=== PATIENT | male | born 1940 | race Caucasian/White ===

== ENCOUNTER 2019-11-18 07:03 | Day surgery (SDC) ==
--- NOTE | 2019-11-11 08:08 | EKG Report ---
Test Performed on : 11/11/2019 08:01:49 AM Test Reason : PAT Blood Pressure : / mmHG Vent. Rate : 074 BPM Atrial Rate : 074 BPM P-R Int : 200 ms QRS Dur : 092 ms QT Int : 368 ms P-R-T Axes : 060 034 074 degrees QTc Int : 408 ms Normal sinus rhythm. Normal ECG No previous ECGs available Confirmed by Lencho Gruber MD ([id number]) on 11/12/2019 7:30:11 AM
[2019-11-11 09:00] LABS: URINE SOURCE CLEAN CATCH
[2019-11-11 09:20] LABS: BILIRUBIN URINE NEGATIVE (NEGATIVE); BLOOD URINE NEGATIVE (NEGATIVE); COLOR YELLOW; GLUCOSE URINE NEGATIVE (NEGATIVE); KETONE URINE NEGATIVE (NEGATIVE); LEUKOCYTES URINE NEGATIVE (NEGATIVE); NITRITE URINE NEGATIVE (NEGATIVE); PROTEIN URINE NEGATIVE (NEGATIVE); SP GRAVITY URINE 1.014; TURBIDITY URINE CLEAR (CLEAR); UROBILINOGEN URINE NORMAL (NORMAL)
[2019-11-11 09:23] LABS: UR EPITHELIAL CELLS <10 /HPF (<10); URINE BACTERIA NEGATIVE /HPF; URINE RBC <10 /HPF (<10); URINE WBC <10 /HPF (<10)
[2019-11-11 09:27] LABS: BASO# 0.02 X1000 (0.0-0.2); BASO% 0.4 % (0.0-0.8); EOS# 0.11 X1000 (0.0-0.7); EOS% 2.4 % (0.0-10.0); HEMATOCRIT 39.3 % (42.0-52.0); HEMOGLOBIN 12.3 g/dL (14.0-18.0); LYMPH# 0.81 X1000 (1.2-3.4); LYMPH% 17.8 % (20.5-51.1); MCH 27.2 PG (27-31); MCHC 31.3 g/dL (33-37); MCV 86.8 FL (81-99); MONO# 0.45 X1000 (0.11-0.59); MONO% 9.9 % (1.7-9.3); MPV 9.4 FL (7.4-10.4); NEUT# 3.15 X1000 (1.4-6.5); NEUT% 69.5 % (42.2-75.2); PLT 171 X1000 (130-400); PROTIME 13.3 Seconds (11.0-16.0); RBC 4.53 XMIL (4.7-6.1); RDW 12.6 % (11.5-14.5); WBC 4.54 X1000 (4.8-10.8)
[2019-11-11 09:28] LABS: PTT 28.2 Seconds (22.3-41.8)
[2019-11-11 10:03] LABS: AGAP 13; ALBUMIN 3.9 g/dL (3.5-5.0); BUN 16 mg/dL (8-22); CALCIUM 9.5 mg/dL (8.8-10.2); CHLORIDE 100 mmol/L (98-107); COSMO 281; CREATININE 1.1 mg/dL (0.7-1.2); ESTIMATED GFR > 60; GLUCOSE 110 mg/dL (70-104); POTASSIUM 4.8 mmol/L (3.5-5.1); SODIUM 140 mmol/L (136-145); TCO2 27 mmol/L (25-35)
[2019-11-11 10:42] LABS: HEMOGLOBIN A1C 6.2 % (4.8-6.0)
[2019-11-18] MEDS ORDERED: COLACE ONE (07:42)
[2019-11-18] MEDS ORDERED: PEPCID ONE (07:42)
[2019-11-18] MEDS ORDERED: REGLAN ONE (07:42)
[2019-11-18] MEDS ORDERED: LR 1,000 ML ONE ×2 (07:43→09:56)
[2019-11-18] MEDS ORDERED: KEFZOL 1 GM/D5W 2 GM/100 ML IVPB ONE (07:43)
[2019-11-18] MEDS ORDERED: LYRICA ONE (07:43)
[2019-11-18] MEDS ORDERED: CELEBREX ONE (07:43)
[2019-11-18] MEDS ORDERED: DIPRIVAN 1% ONE ×2 (08:07→11:23)
[2019-11-18] MEDS ORDERED: VERSED ONE (08:07)
[2019-11-18] MEDS ORDERED: XYLOCAINE-MPF 2% ONE (08:08)
[2019-11-18] MEDS ORDERED: ROBINUL ONE ×2 (08:08→10:08)
[2019-11-18] MEDS ORDERED: MARCAINE 0.25% PF ONE (09:34)
[2019-11-18] MEDS ORDERED: SODIUM CHLORIDE 0.9% ONE (09:34)
[2019-11-18] MEDS ORDERED: TORADOL ONE (09:34)
[2019-11-18] MEDS ORDERED: DURAMORPH ONE (09:34)
[2019-11-18] MEDS ORDERED: VANCOMYCIN ONE (09:34)
[2019-11-18] MEDS ORDERED: CYKLOKAPRON 1,000 MG/NS 1,000 MG/100 ML IVPB ONE ×2 (09:34→09:36)
[2019-11-18] MEDS ORDERED: NEOSPORIN G.U. IRRIGANT ONE (09:36)
[2019-11-18] MEDS ORDERED: EXPAREL 1.3% ONE (09:36)
[2019-11-18] MEDS ORDERED: FENTANYL ONE (10:01)
[2019-11-18] MEDS ORDERED: DECADRON ONE (10:19)
[2019-11-18] MEDS ORDERED: OFIRMEV 1000 MG/ISOTONIC SOLN 1,000 MG/100 ML BOTTLE ONE (10:19)
[2019-11-18 11:09] LABS: URINE SOURCE CATH
[2019-11-18 11:17] LABS: BILIRUBIN URINE NEGATIVE (NEGATIVE); BLOOD URINE NEGATIVE (NEGATIVE); COLOR YELLOW; GLUCOSE URINE NEGATIVE (NEGATIVE); KETONE URINE NEGATIVE (NEGATIVE); LEUKOCYTES URINE NEGATIVE (NEGATIVE); NITRITE URINE NEGATIVE (NEGATIVE); PH URINE 6.5; PROTEIN URINE NEGATIVE (NEGATIVE); SP GRAVITY URINE 1.022; TURBIDITY URINE CLEAR (CLEAR); UR EPITHELIAL CELLS <10 /HPF (<10); URINE BACTERIA NEGATIVE /HPF; URINE RBC <10 /HPF (<10); URINE WBC <10 /HPF (<10); UROBILINOGEN URINE NORMAL (NORMAL)
[2019-11-18] MEDS ORDERED: NS 1,000 ML ONE (12:34)
[2019-11-18] MEDS ORDERED: ZOFRAN PO PRN (12:45)
[2019-11-18] MEDS ORDERED: NS 1,000 ML IV SCH (12:45)
[2019-11-18] MEDS ORDERED: MORPHINE IV PRN ×3 (12:45)
--- NOTE | 2019-11-18 13:26 | Diag Imaging Result Doc PS360 ---
EXAM: KNEE 1-2 VIEWS-LEFT HISTORY: Left TKA TECHNIQUE: Two views COMPARISON: None. FINDINGS: Recent orthopedic replacement of the left knee. There are anterior skin shannan and a superior surgical drain. No fracture. No dislocation. IMPRESSION: Good alignment to the femoral and tibial components of the recently replaced left knee. Electronically signed by Pancho Lucero 11/18/2019 1:24 PM
[2019-11-18] MEDS: OXY IR PO PRN (14:02)
[2019-11-18] MEDS ORDERED: ROBAXIN PO PRN (14:54)
--- NOTE | 2019-11-18 15:01 | OPERATIVE NOTE ---
PROCEDURE DATE: 11/18/2019 PREOPERATIVE DIAGNOSIS: Degenerative osteoarthritis of the left knee. POSTOPERATIVE DIAGNOSIS: Degenerative osteoarthritis of the left knee. PROCEDURE PERFORMED: Left total knee arthroplasty with DePuy Attune size 8 posterior stabilized femur, size 8 tibial tray, 6 mm rotating platform tibial insert, and a 38 mm medialized anatomic patella. SURGEON: Ken Garcia M.D. MILL HAND: Chrissy Mason, who was necessary for proper retraction, manipulation of the extremity, and improved efficiency. SECOND [employer]OURCE INTELLIGENCE: Rey Stewart RN. ANESTHESIA: Spinal. IV FLUIDS: 1400 mL lactated Ringer's. ESTIMATED BLOOD LOSS: 50 mL. TOURNIQUET TIME: 85 minutes at 350 mmHg. COMPLICATIONS: None. INDICATION: The patient is a 79-year-old male with a longstanding history of pain and discomfort in his left knee. He continues that have pain and discomfort despite appropriate nonoperative treatment. X-ray did reveal degenerative osteoarthritis. Recommendation to proceed with left total knee arthroplasty was offered. Risks and benefits of surgery were explained, including the risks of anesthesia, , bleeding, infection, failure to relieve pain, postoperative stiffness, nerve injury, blood clots, and other imponderables. All questions were answered. The patient and family wished to proceed with surgery. DETAILS OF OPERATION: The patient was taken to the operating room and underwent spinal anesthesia. After adequate anesthesia was obtained, he was placed supine on the operating table. The left lower extremity was subsequently prepped and draped in the usual sterile fashion. Esmarch was used to exsanguinate the left lower extremity. Tourniquet was inflated to 350 mmHg. A standard anterior incision was made with a skin knife. Medial and lateral skin envelopes were developed. Standard medial parapatellar arthrotomy was then performed. Patella fat pad was excised. Approximately 1 cm anterior to the PCL insertion, a starting reamer was passed. Intramedullary guide with a distal femoral cutting block was pinned in position. Distal femoral cut was then performed in standard fashion. The patient had some tightness of the patella. Therefore, it was everted and resected in standard fashion. A protective disk was then placed. Attention was then turned back to the distal femur, where a sizing block was placed and measured a size 8. Corresponding pins were placed. A size 8 cutting block was pinned in position. Anterior, posterior, and chamfer cuts were then made. Attention was then turned to the proximal tibia, where using the extramedullary guide, the proximal tibia cutting block was pinned in position. Had good alignment, confirmed with the alignment les. The proximal tibia was then resected. Medial and lateral menisci were excised. A curved osteotome was used to remove the posterior osteophytes off the distal femur. A spacer block was placed, and had good soft tissue balance in both flexion and extension. Attention was turned back to the proximal tibia, where a size 8 tibial tray appeared to be the correct size. This was pinned in position. This was followed by central reamer and a fin punch. A box cutting guide was then pinned on the distal femur. A box cut was then performed. A trial femoral component was then placed. Two lug holes were drilled. Trial tibial insert was then placed, and had good soft tissue balancing. Attention was turned back to the patella, where the protective disk was removed. A size 38 appeared to be the correct size. The holes were drilled. Trial patella component was then placed. The knee was then carried through range of motion with good soft tissue balance, good range of motion, and good patellofemoral tracking. The trial components were then removed. Copious irrigation was then performed with antibiotic pulsatile lavage while vancomycin was mixed in cement on the back table. Sequential cementing was then performed, first with the tibial tray, and excess cement was removed with the Parsons, followed by the femoral component, and excess cement was removed with the Parsons, followed by a trial tibial insert. Full extension and axial loading was maintained while the cement cured. Peripheral cement was removed with a small osteotome while the cement was cured. The patella component was cemented in standard fashion. Patella clamp was placed. While the cement was curing, Exparel was placed in the deep soft tissue, as well as subcutaneous tissue. After the cement had cured, peripheral cement was removed with a small osteotome. The 6 mm rotating platform tibial insert appeared to be the correct size. The trial insert was removed. Exparel was placed in the deep posterior capsule. The wound was copiously with antibiotic pulsatile lavage. A 6 mm rotating platform tibial insert was then placed. This was followed by a 1/8 Hemovac drain. The knee was then carried through range of motion, and had good range of motion, soft tissue balancing, and good patellofemoral tracking. The wound was copiously irrigated once again with antibiotic pulsatile lavage. #1 Vicryl was then used to repair the arthrotomy, followed by 2-0 Vicryl to repair the subcutaneous tissue, and skin shannan. Adaptic, sterile 4 x 4's, Webril, cryo unit, and Jesu wrap were applied to the left lower extremity. The patient tolerated the procedure well, and was transferred to the recovery room in stable condition. cc: Ken Garcia MD
[2019-11-18] MEDS: NORCO-10 PO SCH (17:37)
[2019-11-18] MEDS: KEFZOL 2 GM/D5W 2 GM/50 ML IVPB IV SCH (17:38)
[2019-11-18] MEDS ORDERED: LIPITOR PO SCH (21:00)
[2019-11-18] MEDS ORDERED: PROSCAR PO SCH (21:00)
[2019-11-18] MEDS: PERIDEX MT SCH (21:02)
[2019-11-18] MEDS: COLACE PO SCH (21:02)
[2019-11-18] MEDS: OXY IR PO SCH (21:03)
[2019-11-19] MEDS: OXY IR PO PRN ×4 (01:18→05:35)
[2019-11-19] MEDS: KEFZOL 2 GM/D5W 2 GM/50 ML IVPB IV SCH (01:20)
[2019-11-19 07:05] LABS: HEMOGLOBIN 11.3 g/dL (14.0-18.0)
[2019-11-19 07:18] LABS: CALCIUM 9.4 mg/dL (8.8-10.2); CREATININE 1.3 mg/dL (0.7-1.2); POTASSIUM 5.2 mmol/L (3.5-5.1)
[2019-11-19] MEDS: NORVASC PO SCH ×2 (07:45→09:20)
[2019-11-19] MEDS: NORCO-10 PO SCH ×2 (07:45→09:20)
[2019-11-19] MEDS: OXY IR PO SCH ×2 (07:45→09:19)
[2019-11-19] MEDS: ASPIRIN PO SCH ×2 (07:45→09:20)
[2019-11-19] MEDS: LASIX PO SCH ×2 (07:45→09:20)
[2019-11-19] MEDS: PERIDEX MT SCH ×2 (07:46→09:20)
[2019-11-19] MEDS: COLACE PO SCH ×2 (07:46→09:21)
[2019-11-19] MEDS: HYTRIN PO SCH ×2 (07:46→09:20)
[2019-11-19] MEDS: PLAVIX PO SCH ×2 (07:46→09:20)
[2019-11-19] MEDS: PEPCID PO SCH ×2 (07:46→09:20)
--- NOTE | 2019-11-19 09:17 | PROGRESS NOTE ---
DATE: 11/19/2019 SUBJECTIVE: The patient is a pleasant 79-year-old male who is 1 day status post left total knee arthroplasty. Patient is currently resting comfortably. PHYSICAL EXAMINATION: The patient's wound looks good. There are no signs or symptoms of infection. He has active dorsiflexion and plantar flexion. He is grossly neurovascularly distally. He is able to perform straight leg raise. LABORATORY DATA: His labs are pending. IMPRESSION: Postoperative day #1 status post left total knee arthroplasty. PLAN: At this point, we will plan on mobilizing with physical therapy. We will plan on discharging home and we will arrange for later today if he is mobilizing well. We will plan on home physical therapy. cc: Ken Garcia MD
[2019-11-19 11:51] VITALS: BP 144/74
== END 2019-11-19 12:09 | disposition home or self-care (01) ==
LOC: 4N 07:03 → OR 07:03
PROVIDERS: ADMIT Orthopaedic Surgery Adult Reconstructive Orthopaedic Surgery; ATTEND Orthopaedic Surgery Adult Reconstructive Orthopaedic Surgery